=== PATIENT | female | born 1970 | race Caucasian/White ===

== ENCOUNTER 2018-11-21 05:57 | Inpatient (IN) | payer BC ==
[2018-11-21] VITALS (20 sets, daily range): BP systolic 116–140; BP diastolic 55–71; PULSE 80–106; RESP 13–24; Ht 163.8 cm; Wt 108.0 kg
[~2018-11-21] VITALS: Ht 163.8 cm; Wt 108.0 kg
[2018-11-21] MEDS ORDERED: LACTATED RINGER'S 1,000 ML (ENTER RATE) IV SCH (07:00)
[2018-11-21] MEDS ORDERED: CEFAZOLIN 2 GM/50 ML (PMX) 50 ML IVPB SCH (07:00)
[2018-11-21] MEDS ORDERED: BUPIVACAINE 0.25%/EPI (SDV) 30 ML INJ ONE (07:12)
[2018-11-21] MEDS ORDERED: GELATIN SIZE 100 SPONGE ONE (07:12)
[2018-11-21] MEDS ORDERED: POLYMYXIN/BACITRACIN 1L IRRIG ONE (07:12)
[2018-11-21] MEDS ORDERED: THROMBIN 5000 UNIT VIAL ONE (07:12)
--- NOTE | 2018-11-21 07:13 | HPN ---
Date/Time of Note Date/Time of Note DATE: 11/21/18 TIME: 07:13 Interval H&P Admission Note Pt. seen H&P reviewed: No system changes WAYNE DAVIS MD Nov 21, 2018 07:13
--- NOTE | 2018-11-21 07:19 | PREAC ---
Date/Time of Note Date/Time of Note DATE: 11/21/18 TIME: : Anesthesia Eval and Record Evaluation Time Pre-Procedure Interview DATE: 11/21/18 TIME: :19 Age 48 Sex female NPO: 8 hrs Preoperative diagnosis cervical ddd Planned procedure cervical fusion Past Medical History Past Medical History: Includes Cardio: Dyslipidemia GI: Morbid obesity Surgery & Anesthesia Issues No known issue Meds Anticoagulation: No Beta Eliza within 24 hr: No Reason Beta Eliza not given: Pt. not on B-Eliza Current Medications Cefazolin Sodium/ Dextrose 50 ml @ 100 mls/hr ONCE IVPB ; Start 11/21/18 at 07:00; Stop 11/21/18 at 23:59 Lactated Ringer's 1,000 ml @ 0 mls/hr Q0M IV ; Start 11/21/18 at 07:00; Stop 11/21/18 at 23:59 Meds reviewed: Yes Allergies Coded Allergies: No Known Allergy (Unverified , 11/18/18) Allergies Reviewed: Yes Labs/Studies Labs Reviewed: Reviewed by anesthesiologist test: Negative Pre-procedure Exam Last vitals Vital Signs Date Temp Pulse Resp B/P (MAP) Pulse Ox O2 O2 Flow FiO2 Time Delivery Rate 11/21/18 98.6 80 16 140/71 96 Room Air 07:09 (94) Airway: Adequate mouth opening, Adequate thyromental dist Mallampati: Mallampati II Teeth: Normal Lung: Normal Heart: Normal ASA Physical Status ASA physical status: 3 Emergency: None Planned Anesthetic General/MAC: ETT, A Line Pre-operative Attestations Prior to commencing anesthesia and surgery, the patient was re-evaluated, there was verification of: *The patient's identity *The results of appropriate recent lab work and preoperative vital signs *The above evaluation not changing prior to induction *Anesthetic plan, risk benefits, alternative and complications discussed with patient/family; questions answered; patient/family understands, accepts and wishes to proceed. DARIN WOODS Nov 21, 2018 07:19
[2018-11-21] MEDS ORDERED: ATOR40TA68 ORAL (07:29)
[2018-11-21] MEDS ORDERED: FENO145T37 ORAL (07:29)
[2018-11-21] MEDS ORDERED: SUCCINYLCHOLINE CHLORIDE 100 MG/5 ML SYG IV ONE (07:37)
[2018-11-21] MEDS ORDERED: ROCURONIUM 50 MG INJ ONE (07:37)
[2018-11-21] MEDS ORDERED: LIDOCAINE 100 MG SYRINGE ONE (07:37)
[2018-11-21] MEDS ORDERED: CEFAZOLIN 1 GM INJ ONE (07:37)
[2018-11-21] MEDS ORDERED: FENTAnyl 50 MCG/ML VIAL ONE ×2 (07:37→09:37)
[2018-11-21] MEDS ORDERED: DEXAMETHASONE 4 MG/ML 5 ML INJ ONE (08:13)
[2018-11-21] MEDS ORDERED: LABETALOL HCL 20MG INJ ONE (08:37)
[2018-11-21] MEDS ORDERED: SURGIFOAM POWDER 1 GM KIT MM ONE (09:13)
[2018-11-21] MEDS ORDERED: MIDAZOLAM 1 MG/ML 2 ML INJ ONE (09:37)
[2018-11-21] MEDS ORDERED: SUGAMMADEX SODIUM 200 MG/2 ML VIAL IV ONE (11:26)
--- NOTE | 2018-11-21 11:50 | OPR ---
Date/Time of Note Date/Time of Note DATE: 11/21/18 TIME: 11:40 Operative Report Free Text/Dictation DATE OF OPERATION: 11/21/2018 PREOPERATIVE DIAGNOSES: 1. 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 C6-7 degenerative disk disease with severe central and foraminal stenosis with myeloradiculopathy 3. Morbid Obesity BMI: 40.2 kg/m2 POSTOPERATIVE DIAGNOSES: 1. 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 C6-7 degenerative disk disease with severe central and foraminal stenosis with myeloradiculopathy 3. Morbid Obesity BMI: 40.2 kg/m2 OPERATION PERFORMED: 1.Anterior cervical level C5-6 diskectomy with central and foraminal decompression 2. Anterior cervical disc C5-6 instrumented fusion with allograft 3.Anterior cervical level C6-7 diskectomy with central and foraminal decompression 4. Anterior cervical disc C6-7 instrumented fusion with allograft 5. Use of operative microscope SURGEON: Wayne Davis MD FUR MATCHER: TRISHA Hassan INDICATIONS: Patient is a 48 -year-old female who presents with a several year history of neck and left greater than right upper extremity pain with weakness. After having failed all attempts at conservative management, surgical treatment was recommended. She understood the risks included, but were not limited to, infection, neurologic injury, verve root and spinal cord injury, blood loss, dysphagia, dysphonia, espohogeal injury, dural tear, pseudarthosis, adjacent segment disease, persistence of preoperative symptoms and a potential need for further operative procedures and she elected to proceed with surgery. PROCEDURE IN DETAIL: The patient was identified in the pre-operative area where the operative site was marked in indelible ink. He was brought in the operating room. General anesthesia was obtained. Preoperative antibiotics were given. She was carefully positioned supine on the radiolucent table. The arms were padded and tucked at the sides. The neck was sterilely prepped and draped in the usual fashion. A standard left-sided skin incision was made in a prominent anterior skin fold. This was continued down through subcutaneous tissue to the platysma fascia. Full-thickness skin flaps were developed. The platysma was split in line with the direction of its fibers. The dissection proceeded through the deep cervical fascia at the interval between the esophagus and spine. The preve rtebral fascia was carefully incised, cleared off at the anterior aspect of the C6-7 disk space. The anterior longitudinal ligament was carefully isolated as was the longus coli bilaterally. A [place] retraction cannula was placed into the C6 vertebral body, and an intraoperative radiograph was obtained to confirm the location of the midline along with the operative level. Once this was confirmed, a 2nd [place] pin was placed in the C7 vertebral body, and the longus colli was mobilized bilaterally using bipolar cautery and an elevator. A deep self- retaining retractor was placed underneath the longus colli bilaterally and then distraction was applied across the interspace. The operative microscope was at this point brought in. The osteophyte projecting over the anterior aspect of the C6-7 disk space was at this point resected with a spinal rongeur, and then the anterior portion of the disk was incised with a #15 blade. The disk was excised in its entirety using a series of pituitary rongeurs and angled curettes back to the posterior longitudinal ligament. The uncovertebral osteophyte was resected to allow for foraminal decompression. A foraminotomy was performed bilaterally until a probe could be easily passed along the pathway of the C7 nerve roots. The posterior disk and the PLL were also removed using a nerve hook and a 2mm kerrison. The cord was noted to be decompressed. Hemostasis was obtained at this point, and then a series of trial sizers were used to select an appropriated size allograft spacer. Care was take not to disrupt the endplates. Intraoperative radiographs demonstrated good alignment of the trial, and then the final implant was selected and then inserted into the disk space. This was positioned appropriately and extended to the back of the C6 and C7 vertebral bodies. We used a 6mm height and 7 degree lordotic allograft implant. We then focused on the C5-6 level. Once this was confirmed, a 2nd [place] pin was placed in the C6 vertebral body, and the longus colli was mobilized bilaterally using bipolar cautery and an elevator. A deep self-retaining retractor was placed underneath the longus colli bilaterally and then distraction was applied across the interspace. The operative microscope was at this point brought in. The osteophyte projecting over the anterior aspect of the C5-6 disk space was at this point resected with a spinal rongeur, and then the anterior portion of the disk was incised with a #15 blade. The disk was excised in its entirety using a series of pituitary rongeurs and angled curettes back to the posterior longitudinal ligament. The uncovertebral osteophyte was resected to allow for foraminal decompression. A foraminotomy was performed bilaterally until a probe could be easily passed along the pathway of the C6 nerve roots. The posterior disk and the PLL were also removed using a nerve hook and a 2mm kerrison. The cord was noted to be decompressed. Hemostasis was obtained at this point, and then a series of trial sizers were used to select an appropriated size allograft spacer. Care was take not to disrupt the endplates. Intraoperative radiographs demonstrated good alignment of the trial, and then the final implant was selected and then inserted into the disk space. This was positioned appropriately and extended to the back of the C5 and C6 vertebral bodies. We used a 6mm height and 7 degree lordotic allograft implant. We then chose an appropriate sized plate (40mm) was placed and secured it in standard fashion. X-Rays were taken to ensure appropriate alignment and length of the plate as well as screw sizes. An extra 45 minutes was taken during this procedure due to the complexity of the case given the patients body habitus and morbid obesity (BMI 40.2 kg/m2). The operative site was washed out extensively with sterile normal saline. There was no significant bleeding. The Mark pins were removed, and the sites were blocked off with bone wax. The platysma fascia was then closed with 3-0 Vicryl suture in a running simple fashion over a medium hemovac drain, followed by 4-0 moncryl to close the skin in a running subcuticular fashion. Dermabond was placed, followed by a sterile dressing. The patient was extubated and transferred out to the postanesthesia care unit in a hard collar in good condition. There were no complications. Procedure Date: Nov 21, 2018 Preoperative Diagnosis 1. 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 C6-7 degenerative disk disease with severe central and foraminal stenosis with myeloradiculopathy 3. Morbid Obesity BMI: 40.2 kg/m2 Postoperative Diagnosis 1. 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 C6-7 degenerative disk disease with severe central and foraminal stenosis with myeloradiculopathy 3. Morbid Obesity BMI: 40.2 kg/m2 Operation/Procedure Performed 1.Anterior cervical level C5-6 diskectomy with central and foraminal decompression 2. Anterior cervical disc C5-6 instrumented fusion with allograft 3.Anterior cervical level C6-7 diskectomy with central and foraminal decompression 4. Anterior cervical disc C6-7 instrumented fusion with allograft 5. Use of operative microscope Surgeon see signature line Well Head Pumper TRISHA Hassan Anesthesia Type: general Estimated Blood Loss: 10 - 50 ml's Transfusion none Specimen none Grafts/Implants see op report Complications none Pt Condition Post Procedure: stable Disposition: PACU Procedure Description PROCEDURE IN DETAIL: The patient was identified in the pre-operative area where the operative site was marked in indelible ink. He was brought in the operating room. General anesthesia was obtained. Preoperative antibiotics were given. She was carefully positioned supine on the radiolucent table. The arms were padded and tucked at the sides. The neck was sterilely prepped and draped in the usual fashion. A standard left-sided skin incision was made in a prominent anterior skin fold. This was continued down through subcutaneous tissue to the platysma fascia. Full-thickness skin flaps were developed. The platysma was split in line with the direction of its fibers. The dissection proceeded through the deep cervical fascia at the interval between the esophagus and spine. The prevertebral fascia was carefully incised, cleared off at the anterior aspect of the C6-7 disk space. The anterior longitudinal ligament was carefully isolated as was the longus coli bilaterally. A [place] retraction cannula was placed into the C6 vertebral body, and an intraoperative radiograph was obtained to confirm the location of the midline along with the operative level. Once this was confirmed, a 2nd [place] pin was placed in the C7 vertebral body, and the longus colli was mobilized bilaterally using bipolar cautery and an elevator. A deep self-retaining retractor was placed underneath the longus colli bilaterally and then distraction was applied across the interspace. The operative microscope was at this point brought in. The osteophyte projecting over the anterior aspect of the C6-7 disk space was at this point resected with a spinal rongeur, and then the anterior portion of the disk was incised with a #15 blade. The disk was excised in its entirety using a series of pituitary rongeurs and angled curettes back to the posterior longitudinal ligament. The uncovertebral osteophyte was resected to allow for foraminal decompression. A foraminotomy was performed bilaterally until a probe could be easily passed along the pathway of the C7 ner ve roots. The posterior disk and the PLL were also removed using a nerve hook and a 2mm kerrison. The cord was noted to be decompressed. Hemostasis was obtained at this point, and then a series of trial sizers were used to select an appropriated size allograft spacer. Care was take not to disrupt the endplates. Intraoperative radiographs demonstrated good alignment of the trial, and then the final implant was selected and then inserted into the disk space. This was positioned appropriately and extended to the back of the C6 and C7 vertebral bodies. We used a 6mm height and 7 degree lordotic allograft implant. We then focused on the C5-6 level. Once this was confirmed, a 2nd [place] pin was placed in the C6 vertebral body, and the longus colli was mobilized bilaterally using bipolar cautery and an elevator. A deep self-retaining retractor was placed underneath the longus colli bilaterally and then distraction was applied across the interspace. The operative microscope was at this point brought in. The osteophyte projecting over the anterior aspect of the C5-6 disk space was at this point resected with a spinal rongeur, and then the anterior portion of the disk was incised with a #15 blade. The disk was excised in its entirety using a series of pituitary rongeurs and angled curettes back to the posterior longitudinal ligament. The uncovertebral osteophyte was resected to allow for foraminal decompression. A foraminotomy was performed bilaterally until a probe could be easily passed along the pathway of the C6 nerve roots. The posterior disk and the PLL were also removed using a nerve hook and a 2mm kerrison. The cord was noted to be decompressed. Hemostasis was obtained at this point, and then a series of trial sizers were used to select an appropriated size allograft spacer. Care was take not to disrupt the endplates. Intraoperative radiographs demonstrated good alignment of the trial, and then the final implant was selected and then inserted into the disk space. This was positioned appropriately and extended to the back of the C5 and C6 vertebral bodies. We used a 6mm height and 7 degree lordotic allograft implant. We then chose an appropriate sized plate (40mm) was placed and secured it in standard fashion. X-Rays were taken to ensure appropriate alignment and length of the plate as well as screw sizes. An extra 45 minutes was taken during this procedure due to the complexity of the case given the patients body habitus and morbid obesity (BMI 40.2 kg/m2). The operative site was washed out extensively with sterile normal saline. There was no significant bleeding. The Mark pins were removed, and the sites were blocked off with bone wax. The platysma fascia was then closed with 3-0 Vicryl suture in a running simple fashion over a medium hemovac drain, followed by 4-0 moncryl to close the skin in a running subcuticular fashion. Dermabond was placed, followed by a sterile dressing. The patient was extubated and transferred out to the postanesthesia care unit in a hard collar in good condition. There were no complications. WAYNE DAVIS MD Nov 21, 2018 11:50
[2018-11-21] MEDS ORDERED: AL HYDROX/MG HYDROX/SIMETH 30 ML CUP PO PRN (12:00)
[2018-11-21] MEDS ORDERED: HYDROCODONE/APAP (5/325) TAB PO PRN ×2 (12:00)
[2018-11-21] MEDS ORDERED: FENTAnyl 50 MCG/ML VIAL IV PRN ×2 (12:00)
[2018-11-21] MEDS ORDERED: METOCLOPRAMIDE 10 MG INJ IV PRN (12:00)
[2018-11-21] MEDS ORDERED: NACL 0.9% 3 ML SYG IV SCH (12:00)
[2018-11-21] MEDS ORDERED: OXYCODONE/ACETAMINOPHEN (5/325) TAB PO PRN (12:00)
[2018-11-21] MEDS ORDERED: MEPERIDINE 25 MG INJ IV PRN (12:00)
[2018-11-21] MEDS ORDERED: HYDROmorphONE 0.2 MG/ML PCA IV SCH (12:00)
[2018-11-21] MEDS ORDERED: ACETAMINOPHEN 325 MG TAB PO PRN (12:00)
[2018-11-21] MEDS ORDERED: HYDROmorphONE 1 MG/5 ML IV SYRINGE IV PRN ×3 (12:00)
[2018-11-21] MEDS ORDERED: CEFAZOLIN 1 GM/50 ML (PMX) 50 ML IVPB SCH (12:00)
[2018-11-21] MEDS ORDERED: NALOXONE (0.4 MG/ML) INJ IV PRN (12:00)
[2018-11-21] MEDS ORDERED: ALBUTEROL 0.083% (NEB) 2.5 MG/3 ML AMP HHN PRN (12:00)
[2018-11-21] MEDS ORDERED: ONDANSETRON 4 MG INJ IV PRN ×2 (12:00)
[2018-11-21] MEDS ORDERED: PROCHLORPERAZINE 10 MG TAB PO PRN (12:00)
[2018-11-21] MEDS ORDERED: DIPHENHYDRAMINE 50 MG INJ IV PRN (12:00)
[2018-11-21] MEDS: FENTAnyl 50 MCG/ML VIAL IV PRN ×2 (12:24→12:29)
--- NOTE | 2018-11-21 15:01 | CONS ---
DATE OF ADMISSION: 11/21/2018 DATE OF CONSULTATION: 11/21/2018 TYPE OF CONSULTATION: Post-op medical consultative note. Thank you very much for allowing me to evaluate this 48-year-old female who just underwent cervical s pine surgery. HISTORICAL EVENTS: As you well know, this patient has had unrelenting pain involving her neck and le ft upper extremity, you having evaluated her in your office in early September of this year, having had n o significant response to conservative therapy and because of this, surgical intervention was thought appropriate. Postoperatively, she has mild neck discomfort, but denies cough, wheezing, shortness o f breath, nausea, vomiting, abdominal or chest pain. PAST MEDICAL HISTORY: 1. Depression. 2. History of gout.: 3. Hyperlipidemia. 4. Prior . 5. Hysterectomy. 6. History of pancreatitis. 7. History of mild GERD. 8. No history of coronary disease or diabetes. 9. History of hypertension. 10. Intermittent history of asthma. ALLERGIES: None. SOCIAL HISTORY: Occasionally drinks alcohol. MEDICATIONS: Prior to admission: 1. Fenofibrate 145 mg per day. 2. Lipitor 40 mg per day. 3. Presently not taking colchicine, omeprazole or Proventil. PHYSICAL EXAMINATION: GENERAL: [place] female in no acute distress. VITAL SIGNS: BP 128/80, pulse 70, respirations were 18. She was afebrile. EYES: Extraocular muscles were full. NOSE, MOUTH, AND THROAT: Normal. NECK: Revealed a collar in place. LUNGS: Clear. HEART: Rhythm regular, no murmur. No third or fourth sound. ABDOMEN: Nontender. Liver and spleen were not palpable. No mass or tenderness were noted. EXTREMITIES: No edema. Calves nontender. Pulses 2+. IMPRESSION: 1. Stable postoperative cervical spine surgery. 2. History of hyperlipidemia. We will resume statin and Fenofibrate. 3. Will evaluate daily for signs and symptoms of thromboembolic disease. 4. Will treat with a PPI to prevent gastroesophageal reflux disease. PLAN: Will follow with you daily. Dictated By: SANDRA NINA/KIM Conf#: [id number] DID#: [id number] CC: WAYNE DAVIS MD;*EndCC*
[2018-11-21] MEDS: CEFAZOLIN 1 GM/50 ML (PMX) 50 ML IVPB SCH ×2 (15:23→20:34)
[2018-11-21] MEDS: ACETAMINOPHEN 1000MG/100ML IV 100 ML IVPB SCH ×2 (16:24→23:38)
[2018-11-21] MEDS: SOD CHLORIDE 0.9% 1,000 ML IV SCH (19:27)
[2018-11-21] MEDS ORDERED: FENOFIBRATE 145 MG TAB PO SCH (21:00)
[2018-11-21] MEDS ORDERED: ATORVASTATIN 40 MG TAB PO SCH (21:00)
[2018-11-22 01:42] VITALS: BP 120/59; PULSE 99; RESP 18
[2018-11-22] MEDS: SOD CHLORIDE 0.9% 1,000 ML IV SCH ×2 (02:00→10:03)
[2018-11-22] MEDS: CEFAZOLIN 1 GM/50 ML (PMX) 50 ML IVPB SCH ×2 (02:19→08:20)
[2018-11-22] MEDS ORDERED: PANTOPRAZOLE (EC) 40 MG TAB PO SCH (06:00)
[2018-11-22] MEDS: ACETAMINOPHEN 1000MG/100ML IV 100 ML IVPB SCH (06:17)
--- NOTE | 2018-11-22 08:04 | PAC ---
Date/Time of Note Date/Time of Note DATE: 11/22/18 TIME: 08:04 Post-Anesthesia Notes Post-Anesthesia Note Last documented vital signs Vital Signs Date Temp Pulse Resp B/P (MAP) Pulse Ox O2 O2 Flow FiO2 Time Delivery Rate 11/22/18 05:00 11/22/18 98.5 99 120/59 98 Nasal 2.0 01:42 (79) Cannula Activity: WNL Respiratory function: WNL Cardiovascular function: WNL Mental status: Baseline Pain reasonably controlled: Yes Hydration appropriate: Yes Nausea/Vomiting absent: Yes DARIN WOODS Nov 22, 2018 08:04
[2018-11-22 08:05] VITALS: BP 123/60; PULSE 72; RESP 18
--- NOTE | 2018-11-22 08:17 | CONS ---
Assessment/Plan Assessment/Plan Assessment/Plan (Daily) 1. Doing very well post op cx spine surgery 2. Hx GERD, quiescent 3. Hx asthma, quiescent 4. Labs rev Consultation Date/Type/Reason Admit Date/Time Nov 21, 2018 at 05:57 Initial Consult Date Date/Time of Note DATE: 11/22/18 TIME: 08:15 Detailed Summary Respiratory: No cough, No shortness of breath Cardiovascular: No chest pain Gastrointestinal: no complaints, other (mild diff swallowing) Genitourinary: no complaints Musculoskeletal: neck pain (mild) Exam/Review of Systems Exam Vitals Vital Signs Date Temp Pulse Resp B/P (MAP) Pulse Ox O2 O2 Flow FiO2 Time Delivery Rate 11/22/18 98.4 72 18 123/60 99 Room Air 08:05 (81) 11/22/18 2.0 01:42 Intake and Output 11/21/18 11/21/18 11/22/18 1515:00 23:00 07:00 IntakeIntake Total 1420 ml 680 ml 1350 ml OutputOutput Total 460 ml 0 ml 10 ml BalanceBalance 960 ml 680 ml 1340 ml Neck: No jvd Respiratory: clear to auscultation Cardiovascular: regular rate and rhythm Gastrointestinal: soft Extremities: No edema, No tenderness Results Result Diagram: 11/22/18 0429 11/22/18 0429 Results 24hrs Laboratory Tests Test 11/22/18 04:29 Hemoglobin 13.2 Hematocrit 40.4 Sodium Level 141 Potassium Level 4.6 Chloride Level 105 Carbon Dioxide Level 30 Anion Gap 6 Blood Urea Nitrogen 14 Creatinine 0.61 Est Glomerular Filtrat Rate mL/min > 60 Glucose Level 134 Calcium Level 9.2 Medications Medication Current Medications Acetaminophen/ Hydrocodone Bitart ([place] (5/325)) 1 tab Q4H PRN PO .PAIN 1-5; Start 11/21/18 at 12:00; Status Hold Acetaminophen/ Hydrocodone Bitart ([place] (5/325)) 2 tab Q4H PRN PO .PAIN 6-10; Start 11/21/18 at 12:00; Status Hold Prochlorperazine (Compazine) 10 mg Q4H PRN PO NAUSEA/VOMITING; Start 11/21/18 at 12:00 Ondansetron HCl (Zofran Inj) 4 mg Q6H PRN IV NAUSEA/VOMITING Last administered on 11/21/18at 20:34; Admin Dose 4 MG; Start 11/21/18 at 12:00 Al Hydrox/Mg Hydrox/Simethicone (Mag-Al Plus) 15 ml Q4H PRN PO .CONSTIPATION; Start 11/21/18 at 12:00 Docusate Sodium (Colace) 100 mg BID PO ; Start 11/22/18 at 09:00 Acetaminophen (Tylenol Tab) 650 mg Q4H PRN PO TEMP GREATER THAN 101F OR [place]ISON; Start 11/21/18 at 12:00 IV Flush (NS 3 ml) 3 ml PER PROTOCOL IV ; Start 11/21/18 at 12:00 Hydromorphone HCl (Dilaudid COMMUNITY MARKETING MANAGER) Q4PCA IV Last administered on 11/21/18at 12:12; Admin Dose 6 MG; Start 11/21/18 at 12:00 Naloxone HCl (Narcan) 0.2 mg Q2M PRN IV RR 8 BREATHS/MIN OR LESS; Start 11/21/18 at 12:00 Acetaminophen 100 ml @ 400 mls/hr Q8 IVPB Last administered on 11/22/18at 06:17; Admin Dose 400 MLS/HR; Start 11/21/18 at 14:00; Stop 11/22/18 at 13:59 Lidocaine (Lidoderm) 1 patch DAILY TD ; Start 11/22/18 at 09:00 Atorvastatin Calcium (Lipitor) 40 mg QHS PO ; Start 11/21/18 at 21:00 Fenofibrate (Tricor) 145 mg QHS PO ; Start 11/21/18 at 21:00 Pantoprazole (Protonix Tab) 40 mg DAILY@06 PO ; Start 11/22/18 at 06:00 Sodium Chloride 1,000 ml @ 80 mls/hr [id number] IV Last administered on 11/21/18at 19:27; Admin Dose 80 MLS/HR; Start 11/21/18 at 13:30 Cefazolin Sodium 50 ml @ 100 mls/hr Q6H IVPB Last administered on 11/22/18at 02:19; Admin Dose 100 MLS/HR; Start 11/21/18 at 14:00; Stop 11/22/18 at 08:29 SANDRA BAEZA MD Nov 22, 2018 08:16
[2018-11-22] MEDS ORDERED: LIDOCAINE 5% PATCH TD SCH (09:00)
[2018-11-22] MEDS ORDERED: DOCUSATE SODIUM 100 MG CAP PO SCH (09:00)
--- NOTE | 2018-11-22 13:04 | PDOCDIS ---
Discharge Instructions CONDITION [id number] Patient Condition: [id number] Good HOME CARE INSTRUCTIONS: [id number] Diet Instructions: [id number] Regular ACTIVITY: [id number] Activity Restrictions: [id number] Avoid heavy lifting Avoid Heavy Housework [id number] Bathing Restrictions: [id number] Shower FOLLOW UP/APPOINTMENTS Follow-up Plan Follow-up with Dr. Davis in 2 weeks WAYNE DAVIS MD Nov 22, 2018 13:04
[2018-11-22] MEDS ORDERED: DEXAMETHASONE 10 MG/ML 1 ML INJ IV ONE (13:30)
[2018-11-22] MEDS ORDERED: DEXAMETHASONE 10 MG/ML 1 ML INJ IM ONE (13:30)
== END 2018-11-22 16:15 | disposition home or self-care (01) | DRG 472 ==
LOC: REC 05:57 → MS1 13:50
PROVIDERS: ADMIT Orthopaedic Surgery; ATTEND Orthopaedic Surgery
PROC: 0RG20K0 Fusion of 2 or more Cervical Vertebral Joints with Nonautologous Tissue Substitute, Anterior Approach, Anterior Column, Open Approach (ICD-10-PCS; 2018-11-21)
PROC: 0RT30ZZ Resection of Cervical Vertebral Disc, Open Approach (ICD-10-PCS; 2018-11-21)
PROC: 0RG20A0 Fusion of 2 or more Cervical Vertebral Joints with Interbody Fusion Device, Anterior Approach, Anterior Column, Open Approach (ICD-10-PCS; principal; 2018-11-21 07:30)
DX: M50.122 Cervical disc disorder at C5-C6 level with radiculopathy (principal); Z68.41 Body mass index [BMI] 40.0-44.9, adult; E66.01 Morbid (severe) obesity due to excess calories; E78.5 Hyperlipidemia, unspecified
CPT/HCPCS: 72040; 72050; 80048; 84703; 85014; 85018; 97116; 97161; 97530; J0131; J0690; J1100; J1170; J2001; J2250; J2405; J3010; J7030